=== PATIENT | female | born 1975 | race Caucasian/White ===

== ENCOUNTER 2021-12-19 05:13 | Observation (INO) | payer OTHER ==
[2021-12-16 13:48] LABS: COVID AG,FIA SOURCE NASAL SWAB
[2021-12-16 14:03] LABS: BASOPHILS % (AUTO) 0.2 % (0.0-2.0); EOSINOPHILS % (AUTO) 2.4 % (1.0-6.0); HEMATOCRIT 39.3 % (36-46); HEMOGLOBIN 12.9 g/dL (12.0-16.0); MEAN CORPUSCULAR HEMOGLOBIN 28.8 pg (26.0-34.0); MEAN CORPUSCULAR HGB CONC 32.8 G/dL (31.0-37.0); MEAN CORPUSCULAR VOLUME 88 fL (80-100); MONOCYTES # (AUTO) 0.4 K/uL (0.1-1.0); MONOCYTES % (AUTO) 4.8 % (2.0-9.0); NEUTROPHILS # (AUTO) 5.5 K/uL (1.8-7.7); NEUTROPHILS % (AUTO) 67.6 % (40.0-70.0); PLATELET COUNT (AUTO) 406 K/uL (150-450); RED BLOOD CELL COUNT(AUTO) 4.46 MIL/uL (4.00-5.20); RED CELL DISTRIBUTION WIDTH 13.7 % (11.5-14.5)
[2021-12-16 14:08] LABS: PROTHROMBIN TIME 10.8 SEC (9.4-11.6)
[2021-12-16 14:20] LABS: HEMOGLOBIN A1C 6.8 % (3.8-5.6)
[2021-12-16 14:27] LABS: ANION GAP 12 mmol/L (8-16); CALCIUM, TOTAL 9.5 mg/dL (8.8-10.5); CARBON DIOXIDE 26 mmol/L (22-29); CHLORIDE 102 mmol/L (98-107); CREATININE 0.73 mg/dL (0.60-1.30); GLOMERULAR FILTR. RATE CALC > 60 mL/min (>60); GLUCOSE,RANDOM 149 mg/dL (70-110); POTASSIUM 4.4 mmol/L (3.5-5.1); SODIUM SERUM 140 mmol/L (136-145); UREA NITROGEN, BLOOD 15 mg/dL (7-18)
[2021-12-16 14:32] LABS: ALANINE AMINOTRANSFERASE 14 U/L (12-78); ALBUMIN 3.6 g/dL (3.4-5.0); ALKALINE PHOSPHATASE 72 U/L (46-116); ASPARTATE AMINOTRANSFERASE 8 U/L (15-37); BILIRUBIN,TOTAL 0.4 mg/dL (0.1-1.0); TOTAL PROTEIN, SERUM 7.4 g/dL (6.4-8.2)
[~2021-12-19] VITALS: Ht 152.4 cm; Wt 81.8 kg
[~2021-12-19 05:13] MED LIST: GLIP5TAB12 PO; LISI-892 PO; METF-1211 PO; ROSU20TA73 PO
[2021-12-19] MEDS ORDERED: BUPIVACAINE LIPOSOME/PF 1.3%-13.3MG/ML SUSPENSION 20 ML VIAL INJ ONE (06:00)
[2021-12-19] MEDS ORDERED: RINGERS SOLUTION,LACTATED 1,000 ML IV ONE ×2 (06:00→06:12)
[2021-12-19] MEDS ORDERED: CeFAZolin 1 GM/DEXTROSE 50 ML IV ONE ×2 (06:11→08:00)
[2021-12-19] MEDS ORDERED: BUPIVACAINE HCL/PF 0.5% 30 ML VIAL ONE (06:37)
[2021-12-19] MEDS ORDERED: ZOLPIDEM TARTRATE 10 MG TABLET PO PRN (07:00)
[2021-12-19] MEDS ORDERED: MAG HYDROX/AL HYDROX/SIMETH 30 ML SUSP UDCUP PO PRN (07:00)
[2021-12-19] MEDS ORDERED: BENZOCAINE/MENTHOL LOZENGE PO PRN (07:00)
[2021-12-19] MEDS ORDERED: ONDANSETRON HCL 4 MG/2 ML VIAL IVP PRN ×3 (07:00→10:15)
[2021-12-19] MEDS ORDERED: DiphenhydrAMINE HCL 50 MG/ML VIAL IVP PRN (07:00)
[2021-12-19 07:06] LABS: GLUCOMETER DEV NAME(LOC) SDS.; GLUCOSE,POINT OF CARE 135 MG/DL (70-110)
[2021-12-19] MEDS ORDERED: HYDROmorphone 2 MG/ML VIAL IVP PRN (07:45)
[2021-12-19] MEDS ORDERED: MEPERIDINE-PF 25 MG/ML VIAL IVP PRN (07:45)
[2021-12-19] MEDS: OXYGEN THERAPY IH SCH (08:00)
[2021-12-19] MEDS ORDERED: ZOLPIDEM TARTRATE 5 MG TABLET PO PRN (08:15)
[2021-12-19] MEDS ORDERED: FentaNYL CITRATE PF 100 MCG/2 ML VIAL ONE ×2 (08:55→09:23)
[2021-12-19] MEDS: FentaNYL CITRATE PF 100 MCG/2 ML VIAL IVP PRN ×3 (08:57→09:25)
[2021-12-19] MEDS ORDERED: DOCUSATE SODIUM 100 MG CAPSULE PO SCH (09:00)
[2021-12-19] MEDS ORDERED: HYDROmorphone 2 MG/ML VIAL ONE (09:26)
[2021-12-19] MEDS: HYDROmorphone 2 MG/ML VIAL IVP PRN ×3 (09:28→16:50)
[2021-12-19] MEDS ORDERED: DEXTROSE 50%-WATER 25 GM/50 ML SYRINGE IVP PRN (10:00)
[2021-12-19] MEDS ORDERED: ACETAMINOPHEN 325 MG TABLET PO PRN (10:15)
[2021-12-19 10:18] VITALS: BP 105/63
[2021-12-19] MEDS ORDERED: MIDAZOLAM HCL 2 MG/2 ML VIAL IVP ONE (12:00)
[2021-12-19] MEDS ORDERED: KETAMINE HCL 50 MG/ML 10 ML VIAL IVP ONE (12:00)
[2021-12-19] MEDS ORDERED: LIDOCAINE/PF 2% 5 ML VIAL IM ONE (12:00)
[2021-12-19] MEDS ORDERED: 0.9% SODIUM CHLORIDE 10 ML VIAL IVP ONE (12:00)
[2021-12-19] MEDS ORDERED: PROPOFOL 1% 20 ML VIAL IVP ONE (12:00)
[2021-12-19] MEDS ORDERED: DEXAMETHASONE SOD PHOS 4 MG/ML VIAL IVP ONE (12:00)
[2021-12-19] MEDS ORDERED: KETOROLAC TROMETHAMINE 60 MG/2 ML VIAL IM ONE (12:00)
[2021-12-19] MEDS ORDERED: FentaNYL CITRATE PF 100 MCG/2 ML VIAL IVP ONE (12:00)
[2021-12-19] MEDS ORDERED: ONDANSETRON HCL 4 MG/2 ML VIAL IVP ONE (12:00)
[2021-12-19] MEDS ORDERED: ROCURONIUM BROMIDE 10 MG/ML 5 ML VIAL IVP ONE (12:00)
[2021-12-19] MEDS: INSULIN LISPRO 100 UNITS/ML SQ PRN ×2 (12:23→18:15)
[2021-12-19] MEDS ORDERED: SODIUM CHLORIDE 0.9% 500 ML IV ONE (12:57)
[2021-12-19 13:26] LABS: GLUCOMETER DEV NAME(LOC) 6N.2; GLUCOSE,POINT OF CARE 180 MG/DL (70-110)
[2021-12-19] MEDS: ACETAMINOPHEN 1000 MG/ISO-OSM 100 ML IV SCH ×2 (15:00→18:15)
[2021-12-19] MEDS: CYCLOBENZAPRINE HCL 10 MG TABLET PO PRN ×2 (15:00→20:06)
[2021-12-19] MEDS: OxyCODONE HCL 5 MG IR TABLET PO PRN (15:01)
[2021-12-19 15:34] VITALS: BP 118/67
[2021-12-19 20:01] LABS: GLUCOMETER DEV NAME(LOC) 6N.1; GLUCOSE,POINT OF CARE 182 MG/DL (70-110)
[2021-12-19] MEDS: DOCUSATE SODIUM 100 MG CAPSULE PO SCH (20:02)
[2021-12-19 20:30] VITALS: BP 107/66
[2021-12-19 21:11] LABS: GLUCOMETER DEV NAME(LOC) 6N.1; GLUCOSE,POINT OF CARE 137 MG/DL (70-110)
[2021-12-20] MEDS: ACETAMINOPHEN 1000 MG/ISO-OSM 100 ML IV SCH (01:13)
[2021-12-20 05:15] VITALS: BP 133/68
[2021-12-20 06:47] LABS: GLUCOMETER DEV NAME(LOC) 6N.1; GLUCOSE,POINT OF CARE 120 MG/DL (70-110)
[2021-12-20 07:10] LABS: BASOPHILS % (AUTO) 0.1 % (0.0-2.0); EOSINOPHILS % (AUTO) 0.2 % (1.0-6.0); HEMATOCRIT 32.4 % (36-46); HEMOGLOBIN 10.8 g/dL (12.0-16.0); LYMPHOCYTES # (AUTO) 2.2 K/uL (1.0-4.8); LYMPHOCYTES % (AUTO) 19.9 % (22.0-44.0); MEAN CORPUSCULAR HEMOGLOBIN 29.1 pg (26.0-34.0); MEAN CORPUSCULAR HGB CONC 33.3 G/dL (31.0-37.0); MEAN CORPUSCULAR VOLUME 87 fL (80-100); MONOCYTES % (AUTO) 8.8 % (2.0-9.0); PLATELET COUNT (AUTO) 350 K/uL (150-450); RED BLOOD CELL COUNT(AUTO) 3.71 MIL/uL (4.00-5.20); RED CELL DISTRIBUTION WIDTH 13.4 % (11.5-14.5)
[2021-12-20 07:26] LABS: ANION GAP 6 mmol/L (8-16); CALCIUM, TOTAL 8.6 mg/dL (8.8-10.5); CARBON DIOXIDE 27 mmol/L (22-29); CHLORIDE 103 mmol/L (98-107); CREATININE 0.72 mg/dL (0.60-1.30); GLUCOSE,RANDOM 115 mg/dL (70-110); POTASSIUM 3.7 mmol/L (3.5-5.1); SODIUM SERUM 136 mmol/L (136-145); UREA NITROGEN, BLOOD 13 mg/dL (7-18)
[2021-12-20 07:48] LABS: GLOMERULAR FILTR. RATE CALC > 60 mL/min (>60)
[2021-12-20 07:55] VITALS: BP 124/72
[2021-12-20] MEDS: OXYGEN THERAPY IH SCH (08:00)
[2021-12-20] MEDS: DOCUSATE SODIUM 100 MG CAPSULE PO SCH (08:35)
[2021-12-20] MEDS: CYCLOBENZAPRINE HCL 10 MG TABLET PO PRN (08:40)
[2021-12-20] MEDS ORDERED: FAMOTIDINE 20 MG TABLET PO SCH (09:00)
[2021-12-20] MEDS: INSULIN LISPRO 100 UNITS/ML SQ PRN (12:47)
[2021-12-20] MEDS: OxyCODONE HCL 5 MG IR TABLET PO PRN (12:48)
[2021-12-20] MEDS ORDERED: OxyCODONE HCL/ACETAMINOPHEN 10-325 MG TABLET PO PRN (13:00)
[2021-12-20 13:11] LABS: GLUCOMETER DEV NAME(LOC) 6N.2; GLUCOSE,POINT OF CARE 159 MG/DL (70-110)
== END 2021-12-20 15:30 | disposition home or self-care (01) ==
LOC: INTOOBSV 05:13 → 6S 05:13
PROVIDERS: ADMIT Orthopaedic Surgery Orthopaedic Surgery of the Spine; ATTEND Orthopaedic Surgery Orthopaedic Surgery of the Spine
DX: M48.07 Spinal stenosis, lumbosacral region (principal); Z20.822 Contact with and (suspected) exposure to COVID-19; I10 Essential (primary) hypertension; E11.9 Type 2 diabetes mellitus without complications; M54.16 Radiculopathy, lumbar region; E66.01 Morbid (severe) obesity due to excess calories; Z79.84 Long term (current) use of oral hypoglycemic drugs; Z79.899 Other long term (current) drug therapy; Z98.890 Other specified postprocedural states; Z68.35 Body mass index [BMI] 35.0-35.9, adult
CPT/HCPCS: 80053; 83036; 84703; 85025 ×2; 85610; 85730; 36415 ×3; 93005; 87426; 22853; 20930; 22845; 22558; 99219 ×2; 96372 ×2; 96365; 96366 ×2; 82962 ×2; 86850; 86900; 86901; 87081; 96375; 96376; 80048; 97161; 97530; 97166; 97535; C1716; Z7610 ×3; G0238; J3490 ×4; J2704; J0690; J1100; J3010; J1170; J1885; J2250; J2405 ×2; J7120; X7700; J7040; J0131 ×2; C9290; 96374